=== PATIENT | female | born 1940 | race Caucasian/White ===

== ENCOUNTER 2017-11-09 13:10 | Inpatient (IN) | payer MEDICARE, BC ==
[~2017-11-09] VITALS: Ht 157.5 cm; Wt 74.4 kg
[~2017-11-09 13:10] MED LIST: ALDACTONE25 MG PO; AVALIDE 150-121 EACH PO; CARDIZEM CD120 MG PO; IRBESARTAN-HCT1 EACH PO; PLAVIX 75 MG TA75 M1 PO; PRILOSEC 20 MG20 MG PO; PROTONIX40 M1 PO; VITAMIN D 5050000 I1 PO
[2017-11-09 13:16] VITALS: BP 108/51
[2017-11-09] MEDS ORDERED: CARAFATE1 GM/10 ML PO (13:19)
[2017-11-09 14:32] LABS: HEMATOCRIT 32.7 % (37.0-47.0); HEMOGLOBIN 10.9 gm/dL (12.0-15.0); MCH 30.5 pg (26.0-34.0); MCHC 33.5 g/dL (28.0-37.0); MCV 91.1 fL (80.0-100.0); MPV 6.7 fl. (7.2-11.1); NUCLEATED RBCS 0 /100WBC; PLATELET COUNT* 90 thou/uL (150-400); RBC 3.58 mil/uL (4.20-5.00); RDW-CV 17.4 % (10.5-14.5)
[2017-11-09 14:38] LABS: ANION GAP 7 mmol/L (7-16); BUN 17 mg/dL (7-18); CALCIUM 8.7 mg/dL (8.5-10.1); CHLORIDE 96 mmol/L (98-107); CO2 28 mmol/L (21-32); CREATININE 0.9 mg/dL (0.6-1.3); GLUCOSE 88 mg/dL (70-99); POTASSIUM 3.4 mmol/L (3.5-5.1); SODIUM 131 mmol/L (136-145)
[2017-11-09 14:49] LABS: ALBUMIN 3.1 g/dL (3.4-5.0); ALKALINE PHOSPHATASE 78 U/L (46-116); NT-PRO BRAIN NAT PEPTIDE 63 pg/mL (<300); SGOT 16 U/L (15-37); SGPT 18 U/L (30-65); TOTAL BILIRUBIN 0.3 mg/dL (<0.1-1.0); TOTAL PROTEIN 6.4 g/dL (6.4-8.2); TROPONIN-I LEVEL <0.06 ng/mL (<0.06)
[2017-11-09 14:51] LABS: ABSOLUTE LYMPHOCYTES 0.3 thou/uL (0.8-5.3); ABSOLUTE MONOCYTES 0.3 thou/uL (0.0-1.2); ABSOLUTE NEUTROPHILS 1.3 thou/uL (1.6-8.1); ATYPICAL LYMPHS 4 %
[2017-11-09 14:52] LABS: PLATELET ESTIMATE DECREASED
[2017-11-09 16:27] LABS: URINE BILIRUBIN NEGATIVE (Negative); URINE BLOOD NEGATIVE (Negative); URINE CLARITY CLEAR; URINE COLOR YELLOW; URINE GLUCOSE-RANDOM NEGATIVE (Negative); URINE KETONES NEGATIVE (Negative); URINE LEUKOCYTES-REFLEX NEGATIVE (Negative); URINE NITRITE-REFLEX NEGATIVE (Negative); URINE PROTEIN NEGATIVE (Negative); URINE SPECIFIC GRAVITY <= 1.005 (1.005-1.030); URINE UROBILINOGEN 0.2 E.U./dl (0.2-1.0)
[2017-11-09 16:57] VITALS: BP 140/70
[2017-11-09 17:10] VITALS: BP 123/78
[2017-11-09 17:50] LABS: BE -2.2 mmol/L (-2 to +3); HCO3 21.1 mmol/L (22.0-26.0); PCO2 31.9 mmHg (35.0-45.0); pH 7.439 (7.340-7.450)
--- NOTE | 2017-11-09 19:00 | NUR ---
RECEIVED REPORT FROM SHRAVAN IN ER. PT TRANSFERED TO TELE AT 1710, ASSUMED CARE. VSS. O2 SAT 94% ON 2L PER NC. PT A&O X4. ADMISSION HISTORY, ASSESSMENT, AND EDUCATION COMPLETED CHARTED. MEDS RECONCILLED. IV PATENT AND INFUSING. PT EATING AND DRINKING WITHOUT ISSUE. PT UP STANDBY TO BATHROOM TO VOID - VOIDING WITHOUT ISSUE. PT DENIES PAIN OR DISCOMFORT AT THIS TIME. PT DENIES SOA FEELINGS. ABG'S ORDERED. PT ORIENTED TO ROOM, BED AND CALL LIGHT. PT COMMUNCIATES UNDERSTANDING. AT BEDSIDE. LOW FALL RISK PRECAUTIONS ARE IN PLACE. CALL LIGHT IS WITHIN REACH. HOURLY ROUNDING PERFORMED.
[2017-11-09 20:00] VITALS: BP 110/69
--- NOTE | 2017-11-09 20:00 | NUR ---
RECEIVED REPORT AND ASSUMED CARE OF PT, ASSESSMENT COMPLETED. PT VERY PLEASANT. SOB WITH ACTIVITY OR TALKING. HOB ELEVATED. O2 SAT 95% ON RA. TELEMETRY ON SHOWING SR. WILL CONT TO MONITOR AND ASSIST NEEDED.
[2017-11-09 22:27] LABS: INFLUENZA A ANTIGEN None Detected (None Detect); INFLUENZA B ANTIGEN None Detected (None Detect)
[2017-11-10] VITALS: BP 114/65
[2017-11-10 04:00] VITALS: BP 118/72
--- NOTE | 2017-11-10 05:08 | NUR ---
HAVING INTERMITTENT SOB, HOB ELEVATED. RT TX GIVEN. INDEPENDENT BRP WITH STEADY GAIT. TELEMETRY CONT TO SHOW SR. DENIES CP. ACHIEVING GOALS OF SAFETY AND COMFORT. HOURLY ROUNDING OBSERVED.
[2017-11-10 05:44] LABS: ABSOLUTE LYMPHOCYTES 0.1 thou/uL (0.8-5.3); ABSOLUTE MONOCYTES 0.1 thou/uL (0.0-1.2); ABSOLUTE NEUTROPHILS 0.7 thou/uL (1.6-8.1); MPV 7.1 fl. (7.2-11.1); PLATELET COUNT* 90 thou/uL (150-400)
[2017-11-10 05:51] LABS: BASOPHILS 0.4 %; HEMATOCRIT 33.5 % (37.0-47.0); HEMOGLOBIN 11.1 gm/dL (12.0-15.0); LYMPHOCYTES 14.5 %; MCH 30.4 pg (26.0-34.0); MCHC 33.2 g/dL (28.0-37.0); MCV 91.6 fL (80.0-100.0); MONOCYTES 7.4 %; NUCLEATED RBCS 1 /100WBC; POLYS 77.7 %; RBC 3.66 mil/uL (4.20-5.00); RDW-CV 17.5 % (10.5-14.5)
[2017-11-10 05:57] LABS: CALCIUM 8.7 mg/dL (8.5-10.1); CREATININE 1.3 mg/dL (0.6-1.3); POTASSIUM 3.1 mmol/L (3.5-5.1)
[2017-11-10 06:02] LABS: WBC 0.9 thou/uL (4.0-11.0)
[2017-11-10 08:45] VITALS: BP 141/77
--- NOTE | 2017-11-10 09:00 | NUR ---
ASSUMED PT. CARE AND RECEIVED REPORT AT 0730. PT A/OX4, VSS, MONITOR ON TRACING SR. PT. DENIES CURRENT PAIN/SOB. ON RA @ 97%, WITH VERY COURSE LUNG JACKSON THROUGH OUT. FULL ASSESSMENT COMPLETED, REFER TO CHARTING. DISCUSSED PLAN OF CARE WITH PT/SPOUSE, WILL DISCUSS WITH TO CHANGE TO XOPENEX BREATHING TREATMENT TO REDUCE JITTERS. CALL LIGHT IN REACH, WILL CONTINUE WITH PLAN OF CARE.
[2017-11-10 14:17] VITALS: BP 118/69
[2017-11-10 17:11] VITALS: BP 118/60
--- NOTE | 2017-11-10 19:00 | NUR ---
PT. STABLE THROUGH OUT SHIFT. UP IN ROOM AD DANIELLE, TOLERATED WELL AND STEADY ON FEET. PT. STATES SOME MINOR RELIEF OF SHAKINESS SINCE SWITCH TO XOPENEX BREATHING TREATMENTS. HOURLY ROUNDING COMPLETED THROUGH OUT THE DAY FOR PT. SAFETY.
[2017-11-10 21:00] VITALS: BP 141/72
[2017-11-11] VITALS (7 sets, daily range): BP systolic 121–1347; BP diastolic 61–84
[2017-11-11 06:15] LABS: ALBUMIN 2.8 g/dL (3.4-5.0); CALCIUM 8.5 mg/dL (8.5-10.1); CREATININE 0.9 mg/dL (0.6-1.3); POTASSIUM 3.9 mmol/L (3.5-5.1); TOTAL BILIRUBIN 0.2 mg/dL (<0.1-1.0); TOTAL PROTEIN 6.1 g/dL (6.4-8.2)
[2017-11-11 06:26] LABS: HEMATOCRIT 33.4 % (37.0-47.0); HEMOGLOBIN 11.1 gm/dL (12.0-15.0); MCH 30.4 pg (26.0-34.0); MCHC 33.2 g/dL (28.0-37.0); MCV 91.4 fL (80.0-100.0); MPV 6.8 fl. (7.2-11.1); NUCLEATED RBCS 0 /100WBC; PLATELET COUNT* 101 thou/uL (150-400); RBC 3.66 mil/uL (4.20-5.00); RDW-CV 17.3 % (10.5-14.5)
[2017-11-11 06:33] LABS: WBC 6.7 thou/uL (4.0-11.0)
--- NOTE | 2017-11-11 06:52 | NUR ---
UP AD DANIELLE IN ROOM. DENIED NEED FOR PAIN OR NAUSEA MEDICATION. IV SALINED LOCKED. REMAINS ON HEART MONITOR. DR NOTIFIED OF CRITICAL LABS THIS AM. NO NEW ORDERS. CALL LIGHT WITHIN REACH. WILL CONTINUE TO MONITOR.
[2017-11-11 07:33] LABS: ABSOLUTE LYMPHOCYTES 0.3 thou/uL (0.8-5.3); ABSOLUTE MONOCYTES 0.5 thou/uL (0.0-1.2); ABSOLUTE NEUTROPHILS 5.9 thou/uL (1.6-8.1); ANISOCYTOSIS 1+; PLATELET ESTIMATE ADEQUATE
--- NOTE | 2017-11-11 08:00 | NUR ---
RECEIVED REPORT. ASSUMED CARE OF PT AT 0730. VSS. CARDIAC MONITORING IN PLACE SR. AM ASSESSMENT AND VITALS COMPLETED CHARTED. PT ALERT AND ORIENTED X 4. PT ON RA WITH O2 SAT AT 95% THIS AM. PT DENIES ANY SOA THIS AM. PT HAS BEEN UP AMBULATING IN ROOM. IV SALINE LOCKED. PT DENIES ANY COMPLAINTS OF PAIN OR DISCOMFORT THIS AM. DISCUSSED PLAN OF CARE WITH PT. PT HAS MULTIPLE QUESTIONS REGARDING LABS AND PLAN PT INFORMED AND COMMUNICATES UNDERSTANDING. CALL LIGHT IS WITHIN REACH. WILL CONTINUE TO [facility].
--- NOTE | 2017-11-11 10:09 | CON ---
[address] [address] CONSULTATION Name: TRISTANMELVIN J Room: [address] IN M.R.#: [id number] Admission: 11/09/17 Attend Phys: Helder Dave MD Discharge: Date of : 42 Report #: [id number] THIS REPORT FOR: //name// CC: Helder Stein [facility] DATE OF SERVICE: 11/10/2017 REFERRING PHYSICIAN: Helder Dave MD CHIEF COMPLAINT: Dyspnea. HISTORY OF PRESENT ILLNESS: The patient is a 77-year-old female who was diagnosed with bronchogenic carcinoma, cell type unknown. This occurred back in 02/2017. Prior to that, she had been evaluated for a change in her voice. 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 a paralyzed vocal cord. She was seen by ENT, subsequently referred to [facility]. The patient underwent a left cervical node biopsy and was found to have carcinoma, as mentioned cell type unknown. After that was performed, she underwent a staging workup. This was under the guidance of the oncology division at [facility]. She did undergo chemotherapy treatments at the [facility] and had undergone radiation therapy in [place] under the guidance of Dr. Calderón. The patient states that she was doing well, was starting to regain some strength back in August and September. Then she became ill again. She was told she had radiation pneumonitis, was given a tapering course of prednisone. Yesterday, she was not feeling well, developed cough, had low grade temperature, worsening shortness of breath and just having generalized malaise. She has not had any nausea, vomiting, headache, blurred vision, numbness, tingling. She called her doctor's office and was advised to come to the Emergency Room. PAST MEDICAL HISTORY: Significant for radiation pneumonitis, chronic obstructive pulmonary disease, bronchogenic carcinoma, cell type unknown. In addition to the above medical problems, she has a history of DVT. ALLERGIES: None known. MEDICATIONS: Carafate, , Plavix, Protonix, irbesartan, Rocephin, Zithromax, Solu-Medrol, subQ Lovenox. SOCIAL HISTORY: She is a prior smoker. She quit some time in the summer of 2016, probably consuming about a pack a day. She was vague about her cigarette intake over the years. [place] [address] CONSULTATION Name: MELVIN HUDSON Room: [address]#: [id number] Admission: 11/09/17 Attend Phys: Helder Dave MD Discharge: Date of : 42 Report #: [id number] FAMILY HISTORY: Noncontributory at this time for advanced age. PHYSICAL EXAMINATION: VITAL SIGNS: Blood pressure 141/77, respiratory rate 20 and nonlabored, pulse rate 77, temperature 98 degrees, her admission temperature 97.7 degrees. Her weight 161 pounds. HEAD: She has hair loss from a recent medication treatment for her bronchogenic carcinoma. Head is otherwise atraumatic. EYES: Pupils are round, equal, reactive. ORAL CAVITY: Moist. No lesions. NECK: No adenopathy. CHEST: Scattered wheezes and rhonchi. Breath sounds diminished, symmetrical expansion. CARDIOVASCULAR: Regular rhythm. No murmurs or rubs. ABDOMEN: Soft. EXTREMITIES: Negative for edema. No evidence of clubbing. SKIN: Warm and dry without rash. LYMPHATICS: Negative. NEUROLOGIC: Moves all 4 extremities. Strength diminished, but equal. LABORATORY DATA: Sodium 136, potassium 3.1, chloride 99, CO2 of 22, BUN of 15, creatinine 1.3, glucose 234. Hemoglobin and hematocrit of 11 and 33.5, white count initially was 2000, now it is 900. Influenza A/B screen negative. Arterial blood gas obtained in ER evaluation revealed a pH of 7.44, pCO2 of 32, pO2 of 69, bicarbonate 21 on room air. There was no indication of oxygen therapy at home. Chest x-ray, apical triangular infiltrate or mass in the medial right upper lung with slight retraction. CTA chest did not reveal any evidence of pulmonary emboli, right lung infiltrate or mass effect. ASSESSMENT: 1. Chronic obstructive airways disease with exacerbation most likely. 2. Cough, which is nonproductive. 3. Bronchogenic carcinoma status post treatment. RECOMMENDATION: The patient did have a PET scan last week. It would be good to get that information. Otherwise, no change in her medication. Continue steroids, aerosol treatments, aspiration precautions. Suspect she should have a response as the bronchospasm improves. It should help alleviate some of her respiratory distress and minimize her cough at this time. <ELECTRONICALLY SIGNED> By: Migel De La Fuente MD 11/11/17 1009 [id number] [id number] De La Fuente MD /nt
--- NOTE | 2017-11-11 14:51 | NUR ---
NOTED PT'S HR AFIB WITH RATES INCREASING TO 120-130'S DR. CLIFTON NOTIFIED, AWAITING CALL BACK AT THIS TIME.
--- NOTE | 2017-11-11 15:46 | NUR ---
VSS. CARDIAC MONTIORING IN PLACE WITH CHANGES THIS SHIFT FROM SR TO AFIB WITH HR IN THE 120'S-130'S. PT REMAINS ON RA. PT DENIES ANY COMPLAINTS OF PAIN OR DISCOMFORT THIS SHIFT. PT DOES REPORT SOME LOOSE STOOLS WITH BOWEL PT STARTED ON PROBIOTIC. PT IS UP INDEPENDENTLY IN ROOM. PT PROGRESSING TOWARDS GOALS. PT INFORMED OF PLAN OF CARE. CALL LIGHT IS WIHTIN REACH. WILL CONTINUE TO MONITOR FOR DURAITON OF SHIFT.
--- NOTE | 2017-11-12 00:15 | NUR ---
BEGAN CARE OF PT AT 191, PT A/OX4, SR ON THE MONITOR, RA, FREE FROM PAIN/SOA AT THE TIME OF ASSESSMENT, UP AD DANIELLE, MEDS/ASSESSMENT PER CHARTING, INFORMED PT I NEED TO ASSESS HER BUTTOM WHEN SHE GETS UP TO USE THE RESTROOM, HOURLY ROUNDING/FALL PRECAUTIONS IN PLACE, DAY RN STATED PT IS NO LONGER IN NEUROPENIC PRECAUTIONS DUE TO HER WBC'S INCREASED INTO THE 6'S, INFORMED PT I WILL CONT TO WEAR A MASK WHEN TENDING TO HER CARE, DAY RN REPORTED PT HAD GONE INTO A-FIB RVR ON DAY SHIFT BUT CONVERTED BACK ON HER OWN AND THEY INCREASED HER CARDIZEM TO PO BID TO HELP, VSS, WILL CONT TO MONITOR.
[2017-11-12 04:00] VITALS: BP 117/71
[2017-11-12 05:17] LABS: ABSOLUTE LYMPHOCYTES 0.4 thou/uL (0.8-5.3); ABSOLUTE MONOCYTES 0.4 thou/uL (0.0-1.2); BASOPHILS 0.1 %; HEMATOCRIT 32.8 % (37.0-47.0); HEMOGLOBIN 10.9 gm/dL (12.0-15.0); LYMPHOCYTES 5.6 %; MCH 30.7 pg (26.0-34.0); MCHC 33.2 g/dL (28.0-37.0); MCV 92.5 fL (80.0-100.0); MONOCYTES 4.8 %; NUCLEATED RBCS 0 /100WBC; PLATELET COUNT* 111 thou/uL (150-400); POLYS 89.5 %; RBC 3.54 mil/uL (4.20-5.00); RDW-CV 17.4 % (10.5-14.5); WBC 7.8 thou/uL (4.0-11.0)
[2017-11-12 05:31] LABS: CALCIUM 8.7 mg/dL (8.5-10.1); CREATININE 1.3 mg/dL (0.6-1.3); POTASSIUM 3.5 mmol/L (3.5-5.1); TOTAL BILIRUBIN 0.2 mg/dL (<0.1-1.0); TOTAL PROTEIN 6.4 g/dL (6.4-8.2)
[2017-11-12 05:53] LABS: PREALBUMIN 20.5 mg/dL (18.0-35.7)
[2017-11-12 08:53] VITALS: BP 146/75
--- NOTE | 2017-11-12 11:33 | NUR ---
ASSUMED PT CARE 0730. VSS. AFEBRILE. WBC 7.8 PT LEFT IN NEUTROPENIC PRECAUTIONS BECAUSE OF PT HX. PT UP AD DANIELLE. NO C/O PAIN. WILL CONTINUE PLAN OF CARE.
[2017-11-12 12:09] VITALS: BP 132/72
--- NOTE | 2017-11-12 16:00 | NUR ---
VISITED WITH PT. SHE SAID SHE LIVES WITH HER . SHE DOES NOT USE DME AND HAS NOT HAD HOME HEALTH. SHE IS NORMALLY INDEPENDENT. SHE SAID SHE WAS DONE WITH HER RADIATION AND [place] IN AUG. THEY WANT TO START HER ON IMMUNOTHERAPY SHE TRIES TO DO WHAT SHE CAN AROUND THE HOUSE. SHE IS JUST VERY WEAK,SHE STATED. SHE SAID HER CHILDREN AND NUMEROUS FRIENDS HAVE OFFERED TO HELP HER WITH HOUSE CLEANING,ETC BUT SHE SAID IM GONNA HAVE TO SWALLOW MY PRIDE AND LET THEM HELP. IT IS A VERY HARD THING FOR ME TO DO. CM WILL FOLLOW FOR ANY DISCHARGE NEEDS.
[2017-11-12 17:10] VITALS: BP 146/96
--- NOTE | 2017-11-12 17:46 | NUR ---
PT C/O OF SOA WHEN AMBULATING. PT MAINTAINING O2 AT 96%. WILL CONTINUE TO MONITOR.
[2017-11-12 20:30] VITALS: BP 150/72
[2017-11-13 00:54] VITALS: BP 128/71
[2017-11-13 04:34] VITALS: BP 135/78
--- NOTE | 2017-11-13 04:52 | NUR ---
PT REMAINED A/OX4, SR ON THE MONITOR, OANH JACOBS REPORTED WHEN SHE'S COUGHING, MUCINEX STARTED YESTERDAY, UP AD DANIELLE, MEDS/ASSESSMENT PER CHARTING, VSS, HOURLY ROUNDING/FALL PRECAUTIONS IN PLACE, PT USES CALL LIGHT FOR REQUEST/NEEDS, FREE FROM PAIN DURING THIS SHIFT, WILL CONT TO MONITOR.
[2017-11-13 05:29] LABS: ABSOLUTE LYMPHOCYTES 0.3 thou/uL (0.8-5.3); ABSOLUTE MONOCYTES 0.4 thou/uL (0.0-1.2); ABSOLUTE NEUTROPHILS 7.4 thou/uL (1.6-8.1); BASOPHILS 0.1 %; HEMATOCRIT 32.4 % (37.0-47.0); HEMOGLOBIN 10.9 gm/dL (12.0-15.0); LYMPHOCYTES 3.5 %; MCH 30.6 pg (26.0-34.0); MCHC 33.7 g/dL (28.0-37.0); MCV 90.8 fL (80.0-100.0); MONOCYTES 4.5 %; MPV 6.9 fl. (7.2-11.1); NUCLEATED RBCS 0 /100WBC; PLATELET COUNT* 121 thou/uL (150-400); POLYS 91.9 %; RBC 3.56 mil/uL (4.20-5.00); RDW-CV 17.4 % (10.5-14.5); WBC 8.1 thou/uL (4.0-11.0)
[2017-11-13 05:44] LABS: ALBUMIN 3.1 g/dL (3.4-5.0); CALCIUM 8.7 mg/dL (8.5-10.1); CREATININE 1.2 mg/dL (0.6-1.3); POTASSIUM 3.3 mmol/L (3.5-5.1); TOTAL BILIRUBIN 0.2 mg/dL (<0.1-1.0); TOTAL PROTEIN 6.3 g/dL (6.4-8.2)
[2017-11-13 07:50] VITALS: BP 154/84
--- NOTE | 2017-11-13 10:00 | NUR ---
ASSUMED PT CARE 0730. PT A/O X'S 4. NO C/O PAIN. POTASSIUM REPLACED. PT UP AD DANIELLE. PT REPORTS WHITE MUCOUS. PT REPORTS SHE FEELS SHE NEEDS TO GET OUT MORE MUCOUS. PT REPORTS SOME SOA WITH ACTIVITY. PT 94% ON ROOM AIR. WILL CONTINUE PLAN OF CARE.
[2017-11-13 16:16] VITALS: BP 143/66
--- NOTE | 2017-11-13 16:27 | NUR ---
PT ON ROOM AIR. POTASSIUM REDRAW 3.3. POTASSIUM ELECTROLYTE PROTOCOL RE-STARTED.
[2017-11-13 20:30] VITALS: BP 141/74
--- NOTE | 2017-11-13 22:16 | NUR ---
PT A/OX4, RA, MED/SURG STATUS, VSS WITH STATES 96-98% ON RA, UP AD DANIELLE, MEDS/ASSESSMENT PER CHARTING, HOULRY ROUNDING/FALL PRECAUTIONS IN PLACE, FREE FROM PAIN, REPORTED SOA IS IMPROVED A BIT, POTASSIUM RE-CHECKED WITH RESULTS OF 4.2, WILL CONT TO MONITOR.
[2017-11-14] VITALS: BP 136/70
--- NOTE | 2017-11-14 07:30 | NUR ---
RECEIVED REPORT. ASSUMED CARE OF PT AT 0730. VSS. MED-SURG STATUS. NO CARDIAC MONTIORING IN PLACE. PT ON RA. O2 SAT AT 95% PT ALERT AND ORIENTED. PT DENIES ANY SOA. PT DENIES ANY COMPLAINTS OF PAIN OR DISCOMFORT. PT IS UP INDEPENDENTLY IN ROOM. PT INFORMED OF PLAN OF CARE. CALL LIGHT IS WITHIN REACH. WILL CONTINUE TO MOTNIROR FOR DURATION OF SHIFT
[2017-11-14 08:29] VITALS: BP 158/74
[2017-11-14 16:00] VITALS: BP 145/71
--- NOTE | 2017-11-14 17:19 | NUR ---
VSS. NO CARDIAC MONITORING. PT REMAINS ON RA. IV SALINE LOCKED. PT IS UP INDEPENDELTY IN ROOM. PT HAS HAD NO COMPLAINTS OF PAIN OR DISCOMFORT THIS SHIFT. PT PROGRESSING TOWARDS GAOLS. PULMONARY SIGNED OFF SAID IT WAS OK FOR PT TO D/C. PT INFORMED OF PLAN OF CARE. PT COMMUNCIATES UNDERSTANDING. CALL LIGHT IS WITHIN REACH. WILL CONTINUE TO MOTNIOR FOR DURAIOTN OF SHIFT.
[2017-11-14 20:08] VITALS: BP 144/69
[2017-11-15 04:00] VITALS: BP 147/79
--- NOTE | 2017-11-15 05:25 | NUR ---
PT CARE ASSUMED AFTER REPORT. ASSESSMENT COMPLETE. M/S STATUS. DENIES PAIN. UP AD DANIELLE WITH STEADY GAIT. CALL LIGHT IN REACH. BED IN LOWEST POSITION. PROGRESSING TOWARDS SOME GOALS.
[2017-11-15 08:17] VITALS: BP 152/79
--- NOTE | 2017-11-15 08:18 | NUR ---
RECEVIED REPORT. ASSUMED CARE OF PT AT 0730. VSS. PT MED-SURG STATUS. PT REPORTS FEELING WELL THIS AM. PT ON RA. IV SALINE LOCKED. PT DENIES ANY COMPLAINTS OF PAIN OR DISCOMFORT THIS AM. PT READY TO DISCHARGE TODAY. PT INFORMED OF PLAN OF CARE. CALL LIGHT IS WITHIN REACH. WILL CONTINUE TO MONITOR FOR DURATION OF SHIFT.
[2017-11-15 08:33] VITALS: BP 152/79
[2017-11-15] MEDS ORDERED: ALBUTEROL SULFAT2 MG PO (10:04)
[2017-11-15] MEDS ORDERED: SINGULAIR 10 MG10 M1 PO (10:05)
[2017-11-15] MEDS ORDERED: PREDNISONE 10 M10 MG PO (10:06)
[2017-11-15] MEDS ORDERED: BROVANA15 MCG/2 M INH (10:06)
[2017-11-15] MEDS ORDERED: PULMICORT0.5 MG/22 INH (10:07)
[2017-11-15] MEDS ORDERED: CEFPODOXIME PR100 MG PO (10:09)
--- NOTE | 2017-11-15 10:52 | NUR ---
DISCHARGE ORDERS RECEIVED AND PREPARED. IV DISCONTINUED. PT GIVEN AM MEDS HOWEVER THIS RN UNABLE TO EDIT MEDS ON EMAR BECAUSE COMPUTER SHUT DOWN IN THE PROCESS OF DOCUMENTING ON MEDICATIONS. PT EDUCATED ON DISCHARGE INSTRUICTIONS. ALL QUESTIONS AND CONCNERS ANSWERED AT THIS TIME. PT GIVEN COPY OF DISCHARGE PAPERWORK, NEW SCRIPTS, AND NEW MED INFO. PT'S PERSONAL BELONGINGS GATHERED SENT HOME WITH PT. PT ESCORTED OFF UNIT VIA W/C. PT LEFT IN PRIVATE VEHICLE.
== END 2017-11-15 10:57 | disposition home or self-care (01) | DRG 177 ==
LOC: M.ERS 13:10 → M.TBA-ER 16:14 → M.2W 16:14
PROVIDERS: Family Medicine; Physician Assistant; ADMIT Internal Medicine
DX: J15.6 Pneumonia due to other Gram-negative bacteria (principal); J96.21 Acute and chronic respiratory failure with hypoxia; R65.10 Systemic inflammatory response syndrome (SIRS) of non-infectious origin without acute organ dysfunction; J44.1 Chronic obstructive pulmonary disease with (acute) exacerbation; C34.90 Malignant neoplasm of unspecified part of unspecified bronchus or lung; E87.1 Hypo-osmolality and hyponatremia; E44.0 Moderate protein-calorie malnutrition; D61.818 Other pancytopenia; J44.0 Chronic obstructive pulmonary disease with (acute) lower respiratory infection; I10 Essential (primary) hypertension; M19.90 Unspecified osteoarthritis, unspecified site; K21.9 Gastro-esophageal reflux disease without esophagitis; Z90.710 Acquired absence of both cervix and uterus; I73.9 Peripheral vascular disease, unspecified; D64.9 Anemia, unspecified; Z86.718 Personal history of other venous thrombosis and embolism; Z87.891 Personal history of nicotine dependence; Z92.21 Personal history of antineoplastic chemotherapy; Z92.3 Personal history of irradiation; Z68.30 Body mass index [BMI] 30.0-30.9, adult

== ENCOUNTER → 2018-03-25 | Outpatient (CLI) | payer MEDICARE, BC ==
[~2018-03-25] MED LIST changes: +ALBUTEROL SULFAT2 MG PO; +BROVANA15 MCG/2 M INH; +CARAFATE1 GM/10 ML PO; +CEFPODOXIME PR100 MG PO; +DEXAMETHASONE 44 M1 PO; +PREDNISONE 10 M10 MG PO; +PREDNISONE 5 MG5 MG PO; +PULMICORT0.5 MG/22 INH; +SINGULAIR 10 MG10 M1 PO; +VENTOLIN HFA 1818 GM INH
== END ==
LOC: M.ULTRA 13:55
DX: I73.9 Peripheral vascular disease, unspecified (principal); R60.0 Localized edema; I10 Essential (primary) hypertension

== ENCOUNTER 2018-07-12 22:32 | Emergency (ER) | payer MEDICARE, BC ==
[~2018-07-12] VITALS: Ht 157.5 cm; Wt 78.0 kg
[~2018-07-12 22:32] MED LIST changes: -DEXAMETHASONE 44 M1 PO; -PREDNISONE 5 MG5 MG PO; -VENTOLIN HFA 1818 GM INH
[2018-07-12 23:13] LABS: ABSOLUTE EOSINOPHILS 0.1 thou/uL (0.0-0.7); ABSOLUTE LYMPHOCYTES 0.9 thou/uL (0.8-5.3); ABSOLUTE MONOCYTES 0.5 thou/uL (0.0-1.2); ABSOLUTE NEUTROPHILS 5.3 thou/uL (1.6-8.1); BASOPHILS 0.6 %; EOSINOPHILS 1.4 %; HEMATOCRIT 39.8 % (37.0-47.0); HEMOGLOBIN 13.2 gm/dL (12.0-15.0); LYMPHOCYTES 13.1 %; MCH 28.7 pg (26.0-34.0); MCHC 33.1 g/dL (28.0-37.0); MCV 86.6 fL (80.0-100.0); MONOCYTES 6.7 %; MPV 6.5 fl. (7.2-11.1); NUCLEATED RBCS 0 /100WBC; PLATELET COUNT* 161 thou/uL (150-400); POLYS 78.2 %; RDW-CV 17.4 % (10.5-14.5); WBC 6.8 thou/uL (4.0-11.0)
[2018-07-12 23:21] LABS: CALCIUM 9.1 mg/dL (8.5-10.1); CREATININE 1.1 mg/dL (0.6-1.3); POTASSIUM 3.8 mmol/L (3.5-5.1)
[2018-07-12 23:24] LABS: APTT 25.4 Seconds (25.0-31.3); PROTIME 9.8 Seconds (9.20-11.50)
[2018-07-12 23:26] LABS: ALBUMIN 2.8 g/dL (3.4-5.0); TOTAL BILIRUBIN 0.4 mg/dL (<0.1-1.0); TOTAL PROTEIN 6.6 g/dL (6.4-8.2)
[2018-07-12 23:48] LABS: NT-PRO BRAIN NAT PEPTIDE 198 pg/mL (<300); TROPONIN-I LEVEL <0.06 ng/mL (<0.06)
[2018-07-13 00:24] LABS: URINE BILIRUBIN NEGATIVE (Negative); URINE BLOOD TRACE (Negative); URINE CLARITY CLEAR; URINE COLOR YELLOW; URINE GLUCOSE-RANDOM NEGATIVE (Negative); URINE KETONES NEGATIVE (Negative); URINE LEUKOCYTES-REFLEX NEGATIVE (Negative); URINE NITRITE-REFLEX NEGATIVE (Negative); URINE PROTEIN NEGATIVE (Negative); URINE SPECIFIC GRAVITY 1.025 (1.005-1.030); URINE UROBILINOGEN 0.2 E.U./dl (0.2-1.0)
[2018-07-13 01:42] VITALS: BP 122/75
--- NOTE | 2018-07-13 12:10 | EKG ---
[place] [address] ELECTROCARDIOGRAM REPORT Name: MELVIN HUDSON Room: [facility]#: [id number] Admission: 07/12/18 Attend Phys: Discharge: 07/13/18 Date of : 42 Report #: [id number] THIS REPORT FOR: //name// [facility] ED Test Date: 2018-07-12 Test Time: 23:41:19 Pat Name: MELVIN HUDSON Department: Room: Gender: F Coding Clerk: Toshia GERBER : 1940 Requested By: Oliverio Baez Order Number: [id number] MD: Emil Ryan Measurements Intervals [place] Rate: 92 P: 38 ID: 141 QRS: 5 QRSD: 92 T: 39 QT: 333 QTc: 412 Interpretive Statements Sinus rhythm Probable left atrial enlargement Low voltage, precordial leads Baseline wander in lead(s) V6 No previous ECG available for comparison Electronically Signed On 07-13-2018 12:10:12 CDT by Emil Ryan [email or web address] <ELECTRONICALLY SIGNED> By: Emil Ryan MD, [facility] 07/13/18 1210 [id number] Emil Ryan MD, [facility] /EPI
== END 2018-07-13 01:45 | disposition short-term general hospital (02) ==
LOC: M.ERS 22:32
PROVIDERS: Nurse Practitioner Family
DX: J18.9 Pneumonia, unspecified organism (principal); I10 Essential (primary) hypertension; K21.9 Gastro-esophageal reflux disease without esophagitis; Z85.828 Personal history of other malignant neoplasm of skin; Z90.710 Acquired absence of both cervix and uterus

== ENCOUNTER → 2018-07-29 | Outpatient (CLI) | payer MEDICARE, BC ==
[~2018-07-29] MED LIST changes: +DEXAMETHASONE 44 M1 PO; +PREDNISONE 5 MG5 MG PO; +VENTOLIN HFA 1818 GM INH
[2018-07-29 10:31] LABS: HEMATOCRIT 39.6 % (37.0-47.0); MCH 28.1 pg (26.0-34.0); MCHC 32.9 g/dL (28.0-37.0); MCV 85.4 fL (80.0-100.0); NUCLEATED RBCS 0 /100WBC; PLATELET COUNT* 218 thou/uL (150-400); RBC 4.64 mil/uL (4.20-5.00); RDW-CV 17.3 % (10.5-14.5); WBC 7.8 thou/uL (4.0-11.0)
[2018-07-29 10:54] LABS: ABSOLUTE LYMPHOCYTES 1.1 thou/uL (0.8-5.3); ABSOLUTE MONOCYTES 0.2 thou/uL (0.0-1.2); ABSOLUTE NEUTROPHILS 6.6 thou/uL (1.6-8.1); PLATELET ESTIMATE ADEQUATE
[2018-07-29 10:55] LABS: ANISOCYTOSIS 1+
[2018-07-29 11:04] LABS: CALCIUM 9.4 mg/dL (8.5-10.1); CREATININE 1.1 mg/dL (0.6-1.3)
== END ==
LOC: M.LAB 10:15 → M.MRI 11:30
PROVIDERS: Radiology Radiation Oncology
DX: J98.4 Other disorders of lung (principal); J44.9 Chronic obstructive pulmonary disease, unspecified; J44.0 Chronic obstructive pulmonary disease with (acute) lower respiratory infection; I10 Essential (primary) hypertension; J18.9 Pneumonia, unspecified organism; Z68.31 Body mass index [BMI] 31.0-31.9, adult

== ENCOUNTER 2018-08-08 11:42 | Inpatient (IN) | payer MEDICARE, BC ==
[~2018-08-08] VITALS: Ht 160 cm; Wt 78.9 kg
[~2018-08-08 11:42] MED LIST changes: -DEXAMETHASONE 44 M1 PO; -PREDNISONE 5 MG5 MG PO; -VENTOLIN HFA 1818 GM INH
[2018-08-08 11:47] VITALS: BP 184/102
[2018-08-08 12:08] LABS: ABSOLUTE BASOPHILS 0.1 thou/uL (0.0-0.2); ABSOLUTE LYMPHOCYTES 1.1 thou/uL (0.8-5.3); ABSOLUTE MONOCYTES 0.6 thou/uL (0.0-1.2); ABSOLUTE NEUTROPHILS 4.7 thou/uL (1.6-8.1); EOSINOPHILS 0.6 %; HEMATOCRIT 40.9 % (37.0-47.0); HEMOGLOBIN 13.3 gm/dL (12.0-15.0); LYMPHOCYTES 16.9 %; MCH 28.1 pg (26.0-34.0); MCHC 32.5 g/dL (28.0-37.0); MCV 86.5 fL (80.0-100.0); MONOCYTES 9.2 %; MPV 6.5 fl. (7.2-11.1); NUCLEATED RBCS 0 /100WBC; PLATELET COUNT* 227 thou/uL (150-400); POLYS 72.3 %; RBC 4.73 mil/uL (4.20-5.00); RDW-CV 17.6 % (10.5-14.5); WBC 6.5 thou/uL (4.0-11.0)
[2018-08-08 12:15] LABS: ANION GAP 11 mmol/L (7-16); BUN 14 mg/dL (7-18); CALCIUM 9.6 mg/dL (8.5-10.1); CHLORIDE 100 mmol/L (98-107); CO2 26 mmol/L (21-32); CREATININE 0.9 mg/dL (0.6-1.3); GLUCOSE 131 mg/dL (70-99); SODIUM 137 mmol/L (136-145)
[2018-08-08 12:22] LABS: ALBUMIN 3.2 g/dL (3.4-5.0); ALKALINE PHOSPHATASE 94 U/L (46-116); SGOT 15 U/L (15-37); SGPT 25 U/L (30-65); TOTAL BILIRUBIN 0.5 mg/dL (<0.1-1.0); TOTAL PROTEIN 6.6 g/dL (6.4-8.2); TROPONIN-I LEVEL <0.06 ng/mL (<0.06)
[2018-08-08 12:25] LABS: PROTIME 10.2 Seconds (9.20-11.50)
[2018-08-08] MEDS ORDERED: PREDNISONE 5 MG5 MG PO (12:32)
[2018-08-08 15:31] VITALS: BP 156/97
[2018-08-08 16:52] VITALS: BP 151/86
--- NOTE | 2018-08-08 16:54 | 2DMMODE ---
[place] [address] 2 D/M-MODE ECHOCARDIOGRAM Name: TRISTANMELVIN JOSE Room: [address] IN [facility]#: [id number] Admission: 08/08/18 Attend Phys: Fredrick Rodriguez, Discharge: Date of : 42 Date of Service: 08/08/18 1654 Report #: [id number] THIS REPORT FOR: //name// APPROVED REPORT Study performed: 08/08/2018 14:49:34 EXAM: Comprehensive 2D, Doppler, and color-flow Echocardiogram Patient Location: In-Patient Room #: [facility] Status: routine BSA: 1.77 HR: 68 bpm BP: 182/83 mmHg Rhythm: NSR Other Information Study Quality: Good Indications CVA/TIA Echo Enhancing Agent Indication: Rule out Shunt Agent(s) / Amount(s) Used: Agitated Saline 10 cc 2D Dimensions IVSd: 11.98 (7-11mm) LVOT Diam: 19.33 (18-24mm) LVDd: 38.57 mm PWd: 9.96 (7-11mm) Ascending Ao: 36.99 (22-36mm) LVDs: 24.29 (25-40mm) Aortic Root: 33.07 mm Volumes Left Atrial Volume (Systole) LA ESV Index: 21.60 mL/m2 Aortic Valve AoV Peak Paco.: 1.64 m/s AO Peak Gr.: 10.81 mmHg LVOT Max P.56 mmHg AO Mean Gr.: 6.13 mmHg LVOT Mean P.46 mmHg LVOT Max V: 1.18 m/s AO V2 VTI: 32.78 cm LVOT Mean V: 0.71 m/s ESCOBAR (VTI): 2.19 cm2 LVOT V1 VTI: 24.48 [place] [address] 2 D/M-MODE ECHOCARDIOGRAM Name: MELVIN HUDSON Room: [address] IN .R.#: [id number] Admission: 08/08/18 Attend Phys: Fredrick Rodriguez, Discharge: Date of : 42 Date of Service: 08/08/18 1654 Report #: [id number] Mitral Valve E/A Ratio: 0.66 MV Decel. Time: 221.70 ms MV E Max Paco.: 0.77 m/s MV PHT: 64.29 ms MVA (PHT): 3.42 cm2 TDI E/Lateral E': 8.56 E/Medial E': 7.00 Medial E' Paco.: 0.11 m/s Lateral E' Paco.: 0.09 m/s Pulmonary Valve PV Peak Paco.: 1.16 m/s PV Peak Gr.: 5.34 mmHg Tricuspid Valve RAP Estimate: 5.00 mmHg TR Peak Gr.: 19.04 mmHg RVSP: 24.00 mmHg PA Pressure: 24.00 mmHg Left Ventricle The left ventricle is normal size. There is normal LV segmental wall motion. There is normal left ventricular wall thickness. Left ventricular systolic function is normal. LVEF is 60-65%. Transmitral Doppler flow pattern suggests impaired LV relaxation. Right Ventricle The right ventricle is normal size. The right ventricular systolic function is normal. Atria The left atrium size is normal. Interatrial septum is intact without evidence of ASD or PFO. The right atrium size is normal. Aortic Valve The aortic valve is normal in structure. No aortic regurgitation is present. There is no aortic valvular stenosis. Mitral Valve The mitral valve is normal in structure. There is no mitral valve regurgitation noted. No evidence of mitral valve stenosis. Tricuspid Valve The tricuspid valve is normal in structure. Trace tricuspid regurgitation. [place] [address] 2 D/M-MODE ECHOCARDIOGRAM Name: LEVON HUDSONANA PANTOJAAN Room: [address] IN .R.#: [id number] Admission: 08/08/18 Attend Phys: Fredrick Rodriguez, Discharge: Date of : 42 Date of Service: 08/08/18 1654 Report #: [id number] Pulmonic Valve The pulmonary valve is normal in structure. Trace pulmonic regurgitation. Great Vessels The aortic root is normal in size. IVC is normal in size and collapses >50% with inspiration. Pericardium There is no pericardial effusion. <Conclusion> The left ventricle is normal size. There is normal left ventricular wall thickness. Left ventricular systolic function is normal. LVEF is 60-65%. Transmitral Doppler flow pattern suggests impaired LV relaxation. Interatrial septum is intact without evidence of ASD or PFO. Trace tricuspid regurgitation. No pulmonary hypertension. IVC is normal in size and collapses >50% with inspiration. <ELECTRONICALLY SIGNED> By: Hugo Christine MD, FACC 08/08/181653 53 [id number] Hugo Christine MD, FACC /INF
--- NOTE | 2018-08-08 17:34 | EKG ---
[place] [address] ELECTROCARDIOGRAM REPORT Name: MELVIN HUDSON Room: [address] ADM IN M.R.#: [id number] Admission: 08/08/18 Attend Phys: Fredrick Rodriguez MD Discharge: Date of : 42 Report #: [id number] THIS REPORT FOR: //name// [facility] ED Test Date: 2018-08-08 Test Time: 11:58:52 Pat Name: MELVIN HUDSON Department: Room: [facility] Gender: F Clinical Writer: : 1940 Requested By: Vadim Pantoja Order Number: [id number] MD: Hugo Christine Measurements Intervals [place] Rate: 107 P: 62 AK: 142 QRS: -15 QRSD: 91 T: 19 QT: 374 QTc: 499 Interpretive Statements Sinus tachycardia Ventricular premature complexes Inferior infarct, old, possible Baseline wander in lead(s) V4 Compared to ECG 07/12/2018 23:41:19 Ventricular premature complex(es) now present Myocardial infarct finding now present Sinus rhythm no longer present Electronically Signed On 08-08-2018 17:34:03 [employer] COORDINATOR by Hugo Christine [email or web address] <ELECTRONICALLY SIGNED> By: Hugo Christine MD, FACC 08/08/18 1734 1158 [id number] Hugo Christine MD, FACC /EPI
[2018-08-08 20:00] VITALS: BP 147/91
[2018-08-09] VITALS: BP 156/88
[2018-08-09 04:00] VITALS: BP 149/92
[2018-08-09 05:19] LABS: HEMATOCRIT 38.1 % (37.0-47.0); HEMOGLOBIN 12.4 gm/dL (12.0-15.0); MCH 28.1 pg (26.0-34.0); MCHC 32.5 g/dL (28.0-37.0); MCV 86.5 fL (80.0-100.0); MPV 6.8 fl. (7.2-11.1); RBC 4.41 mil/uL (4.20-5.00); RDW-CV 17.7 % (10.5-14.5); WBC 4.6 thou/uL (4.0-11.0)
[2018-08-09 05:31] LABS: CALCIUM 8.9 mg/dL (8.5-10.1); CREATININE 0.9 mg/dL (0.6-1.3); MAGNESIUM 1.8 mg/dL (1.8-2.4)
[2018-08-09 05:41] LABS: ALBUMIN 2.7 g/dL (3.4-5.0); CREATININE 0.9 mg/dL (0.6-1.3); POTASSIUM 3.9 mmol/L (3.5-5.1); TOTAL BILIRUBIN 0.5 mg/dL (<0.1-1.0); TOTAL PROTEIN 5.6 g/dL (6.4-8.2)
[2018-08-09 08:00] VITALS: BP 132/87
[2018-08-09 10:05] LABS: CHOLESTEROL 203 mg/dL (<200); HDL CHOLESTEROL 60 mg/dL (>40); LDL CHOLESTEROL 113 mg/dL (<100); TC:HDL 3.4 Ratio (Not establshd); TRIGLYCERIDE 150 mg/dL (<150); VLDL 30 mg/dL (<40)
[2018-08-09 10:06] LABS: SERUM ASSESSMENT Clear
[2018-08-09 12:34] VITALS: BP 150/82
[2018-08-09 15:46] VITALS: BP 119/79
[2018-08-09 20:00] VITALS: BP 142/79
[2018-08-09 21:08] LABS: GLYCOHEMOGLOBIN (HGB A1C) 6.3 % (4.8-5.6)
[2018-08-10] VITALS: BP 127/78
[2018-08-10 04:00] VITALS: BP 138/95
[2018-08-10 05:04] LABS: CHOLESTEROL 215 mg/dL (<200); HDL CHOLESTEROL 70 mg/dL (>40); LDL CHOLESTEROL 134 mg/dL (<100); TC:HDL 3.1 Ratio (Not establshd); TRIGLYCERIDE 59 mg/dL (<150); VLDL 12 mg/dL (<40)
[2018-08-10 05:16] LABS: SERUM ASSESSMENT CLEAR
[2018-08-10 08:00] VITALS: BP 154/90
[2018-08-10] MEDS ORDERED: DEXAMETHASONE 44 M1 PO (08:13)
[2018-08-10 09:39] VITALS: BP 154/90
[2018-08-10] MEDS ORDERED: VENTOLIN HFA 1818 GM INH (10:20)
--- NOTE | 2018-08-17 15:44 | CON ---
[address] [address] CONSULTATION Name: TRISTANMELVINANA GARCIA Room: [address] IN M.R.#: [id number] Admission: 08/08/18 Attend Phys: Fredrick Rodriguez MD Discharge: 08/10/18 Date of : 42 Report #: [id number] THIS REPORT FOR: //name// CC: Emil Rodriguez DATE OF SERVICE: 08/08/2018 HISTORY OF PRESENT ILLNESS: This is a 77-year-old female patient who was evaluated by me for the possibility of stroke. This patient has noticed that from last several days, she is having more difficulty with her speech. She was not having much swallowing difficulty. She is right handed. 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 She has been tried with chemotherapy, radiation therapy and when that failed, they tried immunotherapy on her. She received one radiation and she had had an MRI recently on 07/29/2018, that was done with and without contrast and for comparison I got another MRI done. Since we were looking for the stroke, that was done without contrast only, that indicated that the tumor size had increased and her edema had increased. We also did an MRA at the same time and MRA does not show any definite abnormality. She is going to be seen by radiation oncologist. Her oncologist or neuro-oncologist is at [facility]. She has been seen here by Dr. Friedman in the past and her primary oncologist appeared to be at who is Dr. Ortiz. REVIEW OF SYSTEMS: Positive for prior history of lung cancer. She has been admitted here with leukopenia and dyspnea and possible pneumonia and she has seen an oncologist here. Presently, she appeared to be stable from that perspective as her white count when she came in was 6.5, but she is also on steroids. I carried out the 14-point review of systems as much as I can, from the patient as well as the family. She is a prior smoker. 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 She has a history of peripheral vascular disease, hypertension, GERD, skin cancer, hysterectomy, spinal stenosis. That was a relevant 14-point review of system. PAST MEDICAL HISTORY: Positive for lung carcinoma with metastasis. FAMILY HISTORY: Negative for early age stroke. SOCIAL HISTORY: She has a prior history of smoking. PHYSICAL EXAMINATION: Indicate that the patient is alert, responsive. As expected, is somewhat despondent with her situation. Her speech looks intact. Cranial nerve examination 2-12 does indicate some slight facial weakness on the left side. She may be trace weak on the left side as compared to the right side. Clinical neurological deficit is much milder compared to the MRI findings. Cardiac examinations appear unremarkable. [place] [address] CONSULTATION Name: LEVON HUDSONANA GARCIA Room: [address] IN M.R.#: [id number] Admission: 08/08/18 Attend Phys: Fredrick Rodriguez MD Discharge: 08/10/18 Date of : 42 Report #: [id number] appear to be unremarkable. She is moderately built individual. Her vital signs indicate blood pressure is 132/87, respiration is 19, pulse 75, temperature is 98.5. LABORATORY DATA: Indicate a low protein at 2.7. White count is okay at 4.6. Her MRI is reviewed and is summarized above. IMPRESSION AND PLAN: This patient does not have any evidence for CVA. Her symptoms appear to be enlarging edema as well as enlarging metastasis to the brain. It looks like from the history the options are pretty limited in this patient. The patient mainly need to be managed by Oncology as well as Radiation Oncology. She has been seen by Dr. Friedman here and you may consider consulting her again. Radiation Oncology has already been consulted. They need to discuss her options in that regard. Neurologically, there is no evidence for stroke and I do not think there is anything I have to add. I have discussed this patient with the nurses last night, reviewed her MRI and I have talked to the Emergency Room physician last night. More than 50 minutes of time has been spent taking care of this patient and majority of that time was spent counseling the patient as well as coordinating her care as summarized above. <ELECTRONICALLY SIGNED> By: Dharmesh Jimenez MD 08/17/18 1544 [id number] 1926Dharmesh Jimenez MD /nt
--- NOTE | 2018-08-19 03:01 | CON ---
[address] [address] CONSULTATION Name: MELVIN HUDSON Room: [address] IN M.R.#: [id number] Admission: 08/08/18 Attend Phys: Fredrick Rodriguez MD Discharge: 08/10/18 Date of : 42 Report #: [id number] THIS REPORT FOR: //name// CC: Dr. Emil Carl DATE OF CONSULTATION: 08/09/2018 [facility] 0 REFERRING PHYSICIANS: Include Dr. Duran, Dr. Quinn Ortiz, Dr. Glenis Delgado and Dr. Karl Carl. 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 HISTORY OF PRESENT ILLNESS: The patient is a 77-year-old woman who was admitted to [facility] on 08/08/2018 when she presented with a left facial droop. Since her admission, she has been started on dexamethasone and her symptoms have improved. She has ahistory of non-small cell lung cancer. She was diagnosed with a right upper lung nodule back in March 2017 with mediastinal lymph nodes. She had a biopsy, which demonstrated poorly differentiated carcinoma with immunohistochemistry being suggestive of non-small cell lung cancer. The patient received radiation therapy and chemotherapy for presumed stage IIIB lung cancer. The chemotherapy was managed by her medical oncologist, Dr. Ortiz. The patient received radiation therapy to the affected lung from 06/19/2017-07/31/2017. She was prescribed 6000 cGy with 6 MV photons in 200 cGy daily fractions at that time. She then had a head CT on 06/12/2018, which confirmed a brain metastasis. She also had a skull metastasis. She went on to receive stereotactic radiation therapy to the brain metastasis consisting of 1800 cGy in 1 fraction with 6 MV photons and she also was prescribed 2000 cGy to the left skull metastasis in 1 fraction with 6 MV photons. She was seen for followup visit on 08/05/2018 and at that time, she had a head MRI scan performed on 07/29/2018 and that was done at [facility] and the right frontal lobe lesion had decreased in size when compared to her pretreatment head MRI, so on her pretreatment head MRI, the lesion measured 1.3 cm. x 4.43 x 1.37 cm and that was on 06/20/2018 and the MRI on 07/29/2018, the lesion measured 0.97 cm. x 1.17 cm. x 0.93 cm. When she was admitted to [facility], they performed a head MRI on 08/08/2018 and they felt that that lesion may have increased in size since the 07/29/2018 lesion measuring 1.5 cm in greatest dimension with vasogenic edema present. She was started on dexamethasone and her symptoms appeared to have improved with the dexamethasone she is taking 4 mg every 6 [place] [address] CONSULTATION Name: MELVIN HUDSON Room: [address] IN [facility].#: [id number] Admission: 08/08/18 Attend Phys: Fredrick Rodriguez MD Discharge: 08/10/18 Date of : 42 Report #: [id number] PAST MEDICAL HISTORY AND PAST SURGICAL HISTORY: History of lung cancer in 2017. Multiple thyroid nodules. Hypertension and reflux. She has had previous operations consisting of a bunionectomy. Dr. Porter performed facial nerve surgery. She also had a total abdominal hysterectomy. OBSTETRICS AND GYNECOLOGY: Menarche was at age 15. She is 3, para 3. She was menopausal at age 41 when she had her hysterectomy. MEDICATIONS: Right now include dexamethasone 4 mg every 6 hours. She takes 81 mg of aspirin per day. She is also on levetiracetam, clopidogrel, losartan, atorvastatin, pantoprazole, famotidine. ALLERGIES: ARE TO AMLODIPINE, SHE HAD AN ADVERSE REACTION TO GADOLINIUM WHERE SHE HAD SOME COUGHING, WHICH MAY OR MAY NOT HAVE BEEN DUE TO THE GADOLINIUM, BUT SHE HAS HAD GADOLINIUM SINCE THEN, SO SHE IS NOT ALLERGIC TO THE GADOLINIUM. SOCIAL HISTORY: The patient smoked about 3/4 of pack of cigarettes per day for about 50 years. She quit smoking around 2016. REVIEW OF SYSTEMS: CONSTITUTIONAL: She is not diaphoretic. HEAD, EYES, EARS, NOSE AND THROAT: She had no facial swelling. Eyes: She had no photophobia. RESPIRATORY: No wheezing. CARDIOVASCULAR: Negative for palpitations. GASTROINTESTINAL: Negative for vomiting. GENITOURINARY: Negative for hematuria. MUSCULOSKELETAL: Negative for gait problems. SKIN: Negative for rash. NEUROLOGIC: She had no speech difficulty. HEMATOLOGIC: She does not bruise or bleed easily. PSYCHIATRIC: She is negative for confusion. PHYSICAL EXAMINATION: VITAL SIGNS: Temperature 98.5 degrees Fahrenheit, pulse 75, respirations 19, blood pressure 132/87. LYMPH NODES: She had no palpable cervical or supraclavicular lymphadenopathy. EYES: Pupils were equal, round and reactive to light and accommodation. Extraocular movements were intact. HEAD, EYES, EARS, NOSE AND THROAT: Mouth had no visible lesions. HEART: Had a regular rate and rhythm without murmur. LUNGS: were clear to auscultation. ABDOMEN: Not tender. Spleen was not palpable. Liver was at the costal margin. NEUROLOGIC: She had 4/5 strength throughout. She has mild left facial [facility] [address] [place] [address] CONSULTATION Name: MELVIN HUDSON Room: [address] IN ..#: [id number] Admission: 08/08/18 Attend Phys: Fredrick Rodriguez MD Discharge: 08/10/18 Date of : 42 Report #: [id number] drooping. She is able to totally close her left eyelid. The patient indicated that that was improved since her admission while she has been on dexamethasone. LABORATORY DATA: From 08/09/2018, sodium 140, potassium 4.0, BUN 14, creatinine 0.9. White blood count 4.6, hemoglobin 12.4, platelets 208,000. ASSESSMENT AND PLAN: The patient has findings consistent either with post-treatment changes, which are causing her symptoms versus progression of her tumor. Less likely that she would have cerebral necrosis in that area. Her symptoms appear to be improving with dexamethasone, so she continues to be stable on dexamethasone. I will go ahead and refer her to her neurosurgeon, Dr. Porter or his colleagues to assess these MRIs to help differentiate between these possible etiologies for her symptoms and then, I asked the patient to follow up with me after she sees her neurosurgeon Thank you very much for this consult. <ELECTRONICALLY SIGNED> By: Norberto Calderón MD 08/19/18 0301 1832 [id number] Calderón MD /nt
== END 2018-08-10 10:45 | disposition home or self-care (01) | DRG 55 ==
LOC: M.ERS 11:42 → M.2W 13:25 → M.TBA-ER 13:25 → M.2W 15:43
PROVIDERS: Emergency Medicine Emergency Medical Services; ADMIT Internal Medicine
DX: C79.31 Secondary malignant neoplasm of brain (principal); C34.90 Malignant neoplasm of unspecified part of unspecified bronchus or lung; E44.1 Mild protein-calorie malnutrition; I73.9 Peripheral vascular disease, unspecified; I10 Essential (primary) hypertension; K21.9 Gastro-esophageal reflux disease without esophagitis; Z90.710 Acquired absence of both cervix and uterus; Z87.891 Personal history of nicotine dependence; Z88.8 Allergy status to other drugs, medicaments and biological substances; Z79.899 Other long term (current) drug therapy; Z68.30 Body mass index [BMI] 30.0-30.9, adult

== ENCOUNTER 2018-09-26 01:12 | Emergency (ER) | payer MEDICARE, BC ==
[~2018-09-26] VITALS: Ht 160 cm
[~2018-09-26 01:12] MED LIST changes: +DEXAMETHASONE 44 M1 PO; +PREDNISONE 5 MG5 MG PO; +VENTOLIN HFA 1818 GM INH
[2018-09-26 01:36] LABS: HEMATOCRIT 40.2 % (37.0-47.0); HEMOGLOBIN 13.3 gm/dL (12.0-15.0); MCH 28.8 pg (26.0-34.0); MCHC 33.1 g/dL (28.0-37.0); MPV 6.4 fl. (7.2-11.1); NUCLEATED RBCS 0 /100WBC; PLATELET COUNT* 238 thou/uL (150-400); RBC 4.62 mil/uL (4.20-5.00); RDW-CV 17.2 % (10.5-14.5); WBC 8.1 thou/uL (4.0-11.0)
[2018-09-26 01:50] LABS: CALCIUM 9.5 mg/dL (8.5-10.1); POTASSIUM 3.6 mmol/L (3.5-5.1)
[2018-09-26 01:51] LABS: PROTIME 10.2 Seconds (9.20-11.50)
[2018-09-26 02:00] LABS: ABSOLUTE EOSINOPHILS 0.1 thou/uL (0.0-0.7); ABSOLUTE LYMPHOCYTES 1.5 thou/uL (0.8-5.3); ABSOLUTE MONOCYTES 1.4 thou/uL (0.0-1.2); ABSOLUTE NEUTROPHILS 5.1 thou/uL (1.6-8.1); ANISOCYTOSIS 1+; PLATELET ESTIMATE ADEQUATE
[2018-09-26 02:01] LABS: ALBUMIN 3.2 g/dL (3.4-5.0); TOTAL BILIRUBIN 0.4 mg/dL (<0.1-1.0); TOTAL PROTEIN 6.3 g/dL (6.4-8.2); TROPONIN-I LEVEL 0.22 ng/mL (<0.06)
[2018-09-26 03:53] LABS: URINE BILIRUBIN NEGATIVE (Negative); URINE BLOOD NEGATIVE (Negative); URINE CLARITY CLEAR; URINE COLOR YELLOW; URINE GLUCOSE-RANDOM NEGATIVE (Negative); URINE KETONES NEGATIVE (Negative); URINE LEUKOCYTES-REFLEX NEGATIVE (Negative); URINE NITRITE-REFLEX NEGATIVE (Negative); URINE PROTEIN NEGATIVE (Negative); URINE UROBILINOGEN 0.2 E.U./dl (0.2-1.0)
[2018-09-26 06:20] VITALS: BP 95/65
--- NOTE | 2018-09-26 13:46 | EKG ---
[place] [address] ELECTROCARDIOGRAM REPORT Name: MELVIN HUDSON Room: [facility]#: [id number] Admission: 09/26/18 Attend Phys: Discharge: 09/26/18 Date of : 42 Report #: [id number] THIS REPORT FOR: //name// [facility] ED Test Date: 2018-09-26 Test Time: 01:24:39 Pat Name: MELVIN HUDSON Department: Room: Gender: F Mains And Service Supervisor: CATE : 1940 Requested By: Ketty Dang Order Number: [id number] MD: Vinnie Borges Measurements Intervals [place] Rate: 100 P: 58 [place]: 144 QRS: 15 QRSD: 90 T: 34 QT: 348 QTc: 449 Interpretive Statements Sinus tachycardia Ventricular premature complex Probable left atrial enlargement Borderline low voltage, extremity leads Abnormal inferior Q waves Borderline ST elevation, inferior leads Compared to ECG 08/08/2018 11:58:52 Inferior Q waves now present Q waves now present ST (T wave) deviation now present Myocardial infarct finding no longer present Electronically Signed On 09-26-2018 13:46:21 REGISTERED PHARMACY TECHNICIAN by Vinnie Borges [email or web address] <ELECTRONICALLY SIGNED> By: Vinnie Borges MD, FACC 09/26/18 1346 0124 0124 Vinnie Borges MD, FACC /EPI
--- NOTE | 2018-09-26 13:46 | EKG ---
[place] [address] ELECTROCARDIOGRAM REPORT Name: MELVIN HUDSON Room: [facility]#: [id number] Admission: 09/26/18 Attend Phys: Discharge: 09/26/18 Date of : 42 Report #: [id number] THIS REPORT FOR: //name// [facility] ED Test Date: 2018-09-26 Test Time: 03:42:25 Pat Name: MELVIN HUDSON Department: Room: Gender: F Hand Miter Operator: CATE : 1940 Requested By: Ketty Dang Order Number: [id number] MD: Vinnie Borges Measurements Intervals [place] Rate: 98 P: 58 [place]: 150 QRS: -18 QRSD: 90 T: 64 QT: 363 QTc: 464 Interpretive Statements Sinus tachycardia Atrial premature complex Probable left atrial enlargement Borderline left axis deviation Low voltage, extremity and precordial leads Consider inferior infarct Minimal ST elevation, lateral leads Compared to ECG 08/08/2018 11:58:52 Atrial premature complex(es) now present Low QRS voltage now present ST (T wave) deviation now present Ventricular premature complex(es) no longer present Myocardial infarct finding still present Electronically Signed On 09-26-2018 13:46:33 [facility] by Vinnie Borges [email or web address] <ELECTRONICALLY SIGNED> By: Vinnie Borges MD, [facility] 09/26/18 1346 1 034 Vinnie Borges MD, FAC /EPI
== END 2018-09-26 06:25 | disposition short-term general hospital (02) ==
LOC: M.ERS 01:12
PROVIDERS: Emergency Medicine
DX: I21.4 Non-ST elevation (NSTEMI) myocardial infarction (principal); G40.109 Localization-related (focal) (partial) symptomatic epilepsy and epileptic syndromes with simple partial seizures, not intractable, without status epilepticus; R06.00 Dyspnea, unspecified; R79.89 Other specified abnormal findings of blood chemistry; I10 Essential (primary) hypertension; I73.9 Peripheral vascular disease, unspecified; K21.9 Gastro-esophageal reflux disease without esophagitis; Z85.828 Personal history of other malignant neoplasm of skin; Z90.710 Acquired absence of both cervix and uterus

== ENCOUNTER 2018-11-26 19:01 | Emergency (ER) | payer MEDICARE, BC ==
[~2018-11-26] VITALS: Ht 157.5 cm; Wt 76.2 kg
[2018-11-26] MEDS ORDERED: [UNRECOGNIZED DRUG - REMARK] (19:21)
[2018-11-26] MEDS ORDERED: VIMPAT (19:21)
[2018-11-26 19:33] LABS: ABSOLUTE BASOPHILS 0.1 thou/uL (0.0-0.2); ABSOLUTE EOSINOPHILS 0.1 thou/uL (0.0-0.7); ABSOLUTE LYMPHOCYTES 1.2 thou/uL (0.8-5.3); ABSOLUTE NEUTROPHILS 3.8 thou/uL (1.6-8.1); BASOPHILS 0.8 %; HEMATOCRIT 38.7 % (37.0-47.0); HEMOGLOBIN 12.9 gm/dL (12.0-15.0); LYMPHOCYTES 19.7 %; MCH 29.6 pg (26.0-34.0); MCHC 33.4 g/dL (28.0-37.0); MCV 88.7 fL (80.0-100.0); MONOCYTES 15.8 %; MPV 6.4 fl. (7.2-11.1); NUCLEATED RBCS 0 /100WBC; PLATELET COUNT* 190 thou/uL (150-400); POLYS 61.7 %; RBC 4.36 mil/uL (4.20-5.00); WBC 6.2 thou/uL (4.0-11.0)
[2018-11-26 19:50] LABS: URINE BILIRUBIN NEGATIVE (Negative); URINE BLOOD TRACE (Negative); URINE CLARITY CLEAR; URINE COLOR YELLOW; URINE GLUCOSE-RANDOM NEGATIVE (Negative); URINE KETONES TRACE (Negative); URINE LEUKOCYTES-REFLEX 1+ (Negative); URINE NITRITE-REFLEX NEGATIVE (Negative); URINE PROTEIN NEGATIVE (Negative); URINE UROBILINOGEN 0.2 E.U./dl (0.2-1.0)
[2018-11-26 19:51] LABS: ALBUMIN 3.3 g/dL (3.4-5.0); CALCIUM 9.3 mg/dL (8.5-10.1); CREATININE 1.3 mg/dL (0.6-1.3); POTASSIUM 3.5 mmol/L (3.5-5.1); TOTAL BILIRUBIN 0.3 mg/dL (<0.1-1.0); TOTAL PROTEIN 6.4 g/dL (6.4-8.2)
[2018-11-26 19:58] LABS: BACTERIA-REFLEX 1-9 Few /HPF (None Seen); CASTS None Seen /LPF (None Seen); CRYSTALS None Seen /LPF (None Seen); SQUAMOUS 0-3 Few /LPF (0-3); URINE RBC 0-2 Rare /HPF (0-2); URINE WBC-REFLEX 0-5 Rare /HPF (0-5)
[2018-11-26] MEDS ORDERED: d3 (20:03)
[2018-11-26] MEDS ORDERED: LOPRESSOR25 (20:04)
[2018-11-26] MEDS ORDERED: IRBESARTAN-HCT1 EACH (20:07)
[2018-11-26] MEDS ORDERED: KEPPRA1000 MG (20:09)
[2018-11-26] MEDS ORDERED: DEPAKOTE 250MG250 M1 (20:10)
[2018-11-26 22:15] VITALS: BP 140/75
--- NOTE | 2018-11-27 16:03 | EKG ---
[place] [address] ELECTROCARDIOGRAM REPORT Name: MELVIN HUDSON Room: [facility]#: [id number] Admission: 11/26/18 Attend Phys: Discharge: 11/26/18 Date of : 42 Report #: [id number] THIS REPORT FOR: //name// [facility] ED Test Date: 2018-11-26 Test Time: 19:23:17 Pat Name: MELVIN HUDSON Department: Room: Gender: F Poultry Culler: KELLIE : 1940 Requested By: Ketty Dang Order Number: [id number] MD: Bob Pandey Measurements Intervals [place] Rate: 59 P: 48 [place]: 181 QRS: -3 QRSD: 94 T: 115 QT: 416 QTc: 413 Interpretive Statements Sinus rhythm Low voltage, precordial leads Abnrm T, consider ischemia, anterolateral lds Compared to ECG 09/26/2018 03:42:25 Possible ischemia now present Sinus tachycardia no longer present Atrial premature complex(es) no longer present Myocardial infarct finding no longer present ST (T wave) deviation no longer present Electronically Signed On 11-27-2018 16:03:08 [employer] by Bob Pandey [email or web address] <ELECTRONICALLY SIGNED> By: Bob Pandey MD, [facility] 11/27/18 1603 22 22 Bob Pandey MD, FAC /EPI
== END 2018-11-26 22:09 | disposition home or self-care (01) ==
LOC: M.ERS 19:01
PROVIDERS: Emergency Medicine
DX: T42.6X1A Poisoning by other antiepileptic and sedative-hypnotic drugs, accidental (unintentional), initial encounter (principal); I10 Essential (primary) hypertension; I73.9 Peripheral vascular disease, unspecified; K21.9 Gastro-esophageal reflux disease without esophagitis; Z85.828 Personal history of other malignant neoplasm of skin; Z90.710 Acquired absence of both cervix and uterus; Z85.118 Personal history of other malignant neoplasm of bronchus and lung; Y92.89 Other specified places as the place of occurrence of the external cause

== ENCOUNTER → 2018-11-29 | Outpatient (CLI) | payer MEDICARE, BC ==
[~2018-11-29] MED LIST changes: +DEPAKOTE 250MG250 M1; +IRBESARTAN-HCT1 EACH; +KEPPRA1000 MG; +LOPRESSOR25; +VIMPAT; +[UNRECOGNIZED DRUG - REMARK]; +d3
== END ==
LOC: M.LAB 09:08
DX: R89.2 Abnormal level of other drugs, medicaments and biological substances in specimens from other organs, systems and tissues (principal)

== ENCOUNTER 2019-01-11 17:57 | Inpatient (IN) | payer MEDICARE, BC ==
[~2019-01-11] VITALS: Ht 162.6 cm; Wt 81.2 kg
[~2019-01-11 17:57] MED LIST changes: -IRBESARTAN-HCT1 EACH; -KEPPRA1000 MG; +KEPPRA1000 MG PO; -LOPRESSOR25; +LOPRESSOR25 PO; +cholecalciferol PO; -d3
[2019-01-11 18:02] VITALS: BP 168/90
[2019-01-11 18:27] LABS: ABSOLUTE EOSINOPHILS 0.2 thou/uL (0.0-0.7); ABSOLUTE LYMPHOCYTES 1.3 thou/uL (0.8-5.3); ABSOLUTE MONOCYTES 0.8 thou/uL (0.0-1.2); ABSOLUTE NEUTROPHILS 3.8 thou/uL (1.6-8.1); BASOPHILS 0.8 %; EOSINOPHILS 2.5 %; HEMATOCRIT 39.6 % (37.0-47.0); HEMOGLOBIN 13.3 gm/dL (12.0-15.0); LYMPHOCYTES 21.1 %; MCHC 33.5 g/dL (28.0-37.0); MCV 86.4 fL (80.0-100.0); MONOCYTES 13.4 %; MPV 6.7 fl. (7.2-11.1); NUCLEATED RBCS 0 /100WBC; PLATELET COUNT* 225 thou/uL (150-400); POLYS 62.2 %; RBC 4.59 mil/uL (4.20-5.00); RDW-CV 15.2 % (10.5-14.5); WBC 6.2 thou/uL (4.0-11.0)
[2019-01-11 18:53] LABS: ALBUMIN 2.3 g/dL (3.4-5.0); ALKALINE PHOSPHATASE 68 U/L (46-116); ANION GAP 12 mmol/L (7-16); BUN 11 mg/dL (7-18); CALCIUM 6.5 mg/dL (8.5-10.1); CHLORIDE 112 mmol/L (98-107); CO2 20 mmol/L (21-32); CREATININE 0.7 mg/dL (0.6-1.3); GLUCOSE 77 mg/dL (70-99); SGOT 10 U/L (15-37); SGPT 12 U/L (30-65); SODIUM 144 mmol/L (136-145); TOTAL BILIRUBIN 0.3 mg/dL (<0.1-1.0); TOTAL PROTEIN 4.5 g/dL (6.4-8.2); TROPONIN-I LEVEL <0.06 ng/mL (<0.06)
[2019-01-11 18:57] LABS: POTASSIUM 2.6 mmol/L (3.5-5.1)
[2019-01-11] MEDS ORDERED: INCRUSE ELLI62.5 MCG INH (19:16)
[2019-01-11] MEDS ORDERED: MUCINEX600 MG PO (19:17)
[2019-01-11] MEDS ORDERED: TYLENOL325 MG PO (19:17)
[2019-01-11 20:15] VITALS: BP 145/64
[2019-01-11 20:19] VITALS: BP 152/75
[2019-01-12] VITALS (7 sets, daily range): BP systolic 123–158; BP diastolic 60–83
--- NOTE | 2019-01-12 05:53 | NUR ---
RECEIVED REPORT FROMED RN. PT TRANSFERRED TO 213. PT A&OX4. AIRPLANE PILOT IN PLACE. VSS. PHYSICAL ASSESSMENT COMPLETED AND CHARTED. FALL FORM SIGNED. ORIENTED TO ROOM & CALL LIGHT. PT TRACING SB ON TELE. PT UPSTANDBY TO RESTROOM. PT HAD A ONETIME EPISODE OF SEIZURE LIKE ACTIVITY- TWITCHING OF FACIAL MUSCLE APPROX 1 MIN. PT DENIES ANY PAIN OR DISCOMFORT. NIH CHARTED. CALL LIGHT WITHIN REACH.
--- NOTE | 2019-01-12 10:09 | NUR ---
CALLED [facility] AND REVIWED MEDICATION LIST. NO CHANGES MADE LIST IS ACCURATE
--- NOTE | 2019-01-12 12:08 | EKG ---
[place] [address] ELECTROCARDIOGRAM REPORT Name: MELVIN HUDSON Room: [address] ADM IN M.R.#: [id number] Admission: 01/11/19 Attend Phys: Fredrick Rodriguez MD Discharge: Date of : 42 Report #: [id number] THIS REPORT FOR: //name// [facility] ED Test Date: 2019-01-11 Test Time: 18:32:37 Pat Name: MELVIN HUDSON Department: Room: [facility] Gender: F Lead Painter: LINN : 1940 Requested By: Jason Whelan Order Number: [id number] MD: Hugo Christine Measurements Intervals [place] Rate: 54 P: 37 [place]: 186 QRS: -1 QRSD: 100 T: 55 QT: 437 QTc: 415 Interpretive Statements Sinus rhythm Compared to ECG 11/26/2018 19:23:17 Possible ischemia no longer present Electronically Signed On 01-12-2019 12:07:59 CDT by Hugo Christine [email or web address] <ELECTRONICALLY SIGNED> By: Hugo Christine MD, [facility] 01/12/19 1207 31 31 Hugo Christine MD, FAC /EPI
--- NOTE | 2019-01-12 16:23 | NUR ---
PT RESTING IN BED THROUGHOUT SHIFT. PT ASSISTED TO BR WITH STEADY GAIT. NO SEIZURE ACTIVITY NOTED THIS SHIFT. PT TOLERATING PO WELL. AT BS AND UPDATED ON PLAN OF CARE
[2019-01-13 00:30] VITALS: BP 116/59
[2019-01-13 04:00] VITALS: BP 134/56
[2019-01-13 04:23] LABS: HEMATOCRIT 37.6 % (37.0-47.0); HEMOGLOBIN 12.4 gm/dL (12.0-15.0); MCH 28.7 pg (26.0-34.0); MCV 86.9 fL (80.0-100.0); MPV 6.9 fl. (7.2-11.1); RBC 4.32 mil/uL (4.20-5.00); RDW-CV 15.5 % (10.5-14.5); WBC 6.1 thou/uL (4.0-11.0)
[2019-01-13 04:40] LABS: MAGNESIUM 1.8 mg/dL (1.8-2.4); POTASSIUM 4.1 mmol/L (3.5-5.1); TOTAL BILIRUBIN 0.2 mg/dL (<0.1-1.0); TOTAL PROTEIN 5.8 g/dL (6.4-8.2)
[2019-01-13 04:50] LABS: CALCIUM 8.9 mg/dL (8.5-10.1)
[2019-01-13 08:00] VITALS: BP 124/63
[2019-01-13 12:11] VITALS: BP 125/64
[2019-01-13] MEDS ORDERED: TRILEPTAL300 MG PO (13:06)
[2019-01-13] MEDS ORDERED: VIMPAT200 MG PO (13:23)
[2019-01-13] MEDS ORDERED: KEPPRA1000 MG PO (13:38)
[2019-01-13 14:44] VITALS: BP 125/64
--- NOTE | 2019-01-13 14:56 | NUR ---
ASSUMED PT CARE REPORT RECEIVED FROM NURSE. PT IS AOX4 SR ON CLINICAL STATISTICS MANAGER.O2 SAT 94% RA. PT ON SEIZURE PRECAUTION. SEIZURE MEDICATIONS HAVE BEEN GIVEN ORDERED. IV LINE PATENT. PT HAS GOOD APPETITE. PT TO BE DISCHARGE TO HOME. WILL CONTINUE TO MONITOR
--- NOTE | 2019-01-15 14:23 | EEG ---
[address] [address] EEG STUDY REPORT Name: MELVIN HUDSON Room: [address] IN M.R.#: [id number] Admission: 01/11/19 Attend Phys: Fredrick Rodriguez MD Discharge: 01/13/19 Date of : 42 Report #: [id number] THIS REPORT FOR: //name// CC: Emil Rodriguez DATE OF SERVICE: 01/12/2019 This patient is being evaluated for the possibility of seizure. EEG was done by placing the electrodes by standard 10-20 system of electrode placement. Both referential and sequential montages were used for recording. Background activity in this patient's EEG is about 10 Hz and 40 microvolt. The patient became drowsy and that is associated with bilateral slowing and vertex sharp waves. Photic stimulation was unremarkable. Throughout the record, no active epileptiform activity was noticed. IMPRESSION: In spite of the patient's history, the electroencephalogram does not show any active epileptiform activity. It might be mentioned that electroencephalogram can be normal in a patient with a seizure disorder. Thank you very much for this referral. <ELECTRONICALLY SIGNED> By: Dharmesh Jimenez MD 01/15/19 1423 1333 1621Plainey Jimenez MD /nt
--- NOTE | 2019-01-15 14:23 | CON ---
[address] [address] CONSULTATION Name: TRISTANMELVINANA GARCIA Room: [address] IN M.R.#: [id number] Admission: 01/11/19 Attend Phys: Fredrick Rodriguez MD Discharge: 01/13/19 Date of : 42 Report #: [id number] THIS REPORT FOR: //name// CC: Emil Rodriguez DATE OF SERVICE: 01/12/2019 HISTORY OF PRESENT ILLNESS: This is a 78-year-old female patient who was evaluated by me for seizure. This patient has a complicated history. It looks like she was diagnosed with lung cancer in 2016 and she received treatment at and I do not have those records. This patient was admitted here in July and I saw her at that time. At that time, she was diagnosed with a tumor, which was increasing in size. Then, in September, she had a seizure. She was admitted to [facility] and they did surgery on her. I do not have that records with me. She was admitted here because she has trouble with twitching on the left side of the face and she was brought here. Apparently, she had mainly twitching on the left side of the face, there was no tonic-clonic activity, even the twitching was minor, it was just a staring look which worried the and he brought the patient here. REVIEW OF SYSTEMS: Indicate that she was admitted in September to [facility]. She underwent resection of a lesion in the brain. She was on 4 anticonvulsants at that time. It was Dilantin, Vimpat, Keppra, and another one, the name of which the patient's does not remember. She still has these seizures, although they are pretty small seizures. Review of systems indicate that this patient has been admitted with stroke-like symptoms in the past, but that was found to be enlarging tumor than stroke. She has a longstanding history of lung cancer with metastasis to the brain. Her physicians are at [facility]. She does have a history of hypertension. She had a prior history of abdominal hysterectomy. A 14-point review of system was otherwise unremarkable. PHYSICAL EXAMINATION: Indicate that this patient is alert, responsive, able to follow simple commands. Her memory and fund of knowledge is diminished, but probably baseline. Cranial nerve examination 2-12 mostly looks noncontributory. She moves all four extremities and has a position sense in both sides. There is no meningeal sign in this patient. There is no carotid bruit. She is moderately built individual who does not have any dysmorphic features of the eyes, ears and face. Blood pressure is 156/83, pulse is 65, temperature is 97.1. LABORATORY DATA: White count is 6.2. Her potassium when she came in was only 2.6 and her calcium was only 6.5. The last time her magnesium was checked, [place] 1.6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 I do not have her prior records. She is on 2 anticonvulsants as I understand from the family. It is not clear what dose the patient is on. The patient is on Keppra 2000 mg p.o. b.i.d. lacosamide dose is not clear. The records indicate she is on 50 mg b.i.d., but the says she is on 200 mg b.i.d. I asked him to clarify that. RECOMMENDATIONS: If the patient is not a full on a full dose of Vimpat, which is 200 mg b.i.d., we should gradually increase it to that dose. If she is already on that, then we may try some medications, which are supposedly more effective for focal seizure. We can try Trileptal and if that is unsuccessful, we can try Tegretol. I will get an EEG done. I discussed with the family that these focal seizures are very difficult to control and we may not be able to control them fully. She does need a repeat MRI. All the workup is at and at one time, there was some doubt whether she is allergic to gadolinium. I suggested that she follow up with the and I might let them do the MRI there. If they were to get it done here, we can do here. I discussed all of it with the patient and the family and their options. Time spent 50 minutes, more than half that time spent counseling and coordinating care. <ELECTRONICALLY SIGNED> By: Dharmesh Jimenez MD 01/15/19 1423 1018 0035Dharmesh Jimenez MD /nt
== END 2019-01-13 15:27 | disposition home or self-care (01) | DRG 100 ==
LOC: M.ERS 17:57 → M.2W 18:44 → M.TBA-ER 18:44 → M.2W 20:34
PROVIDERS: Family Medicine; Internal Medicine; ADMIT Internal Medicine
DX: G40.909 Epilepsy, unspecified, not intractable, without status epilepticus (principal); E43 Unspecified severe protein-calorie malnutrition; C34.90 Malignant neoplasm of unspecified part of unspecified bronchus or lung; C79.31 Secondary malignant neoplasm of brain; J96.10 Chronic respiratory failure, unspecified whether with hypoxia or hypercapnia; I10 Essential (primary) hypertension; K21.9 Gastro-esophageal reflux disease without esophagitis; I73.9 Peripheral vascular disease, unspecified; M48.00 Spinal stenosis, site unspecified; Z79.899 Other long term (current) drug therapy; Z68.30 Body mass index [BMI] 30.0-30.9, adult

== ENCOUNTER → 2019-01-14 | Outpatient (CLI) | payer MEDICARE, BC ==
[~2019-01-14] MED LIST changes: +INCRUSE ELLI62.5 MCG INH; +MUCINEX600 MG PO; +TRILEPTAL300 MG PO; +TYLENOL325 MG PO; +VIMPAT200 MG PO
[2019-01-14 12:01] LABS: ALBUMIN 3.5 g/dL (3.4-5.0); CALCIUM 9.2 mg/dL (8.5-10.1); CREATININE 0.9 mg/dL (0.6-1.3); POTASSIUM 3.8 mmol/L (3.5-5.1); TOTAL BILIRUBIN 0.3 mg/dL (<0.1-1.0); TOTAL PROTEIN 6.8 g/dL (6.4-8.2)
== END ==
LOC: M.LAB 10:29 → M.MRI 11:30 → M.LAB 01-21 10:30 → M.MRI 01-21 11:30
PROVIDERS: Radiology Radiation Oncology
DX: C79.31 Secondary malignant neoplasm of brain (principal); C34.90 Malignant neoplasm of unspecified part of unspecified bronchus or lung; M47.812 Spondylosis without myelopathy or radiculopathy, cervical region; Z92.3 Personal history of irradiation

== ENCOUNTER → 2019-02-14 | Outpatient (CLI) | payer MEDICARE, BC | LOC: M.LAB 10:34 | DX: R56.9 Unspecified convulsions (principal); C34.2 Malignant neoplasm of middle lobe, bronchus or lung; C79.31 Secondary malignant neoplasm of brain ==

== ENCOUNTER → 2019-03-05 | Outpatient (CLI) | payer MEDICARE, BC ==
[2019-03-05 10:54] LABS: ABSOLUTE MONOCYTES 0.9 thou/uL (0.0-1.2); ABSOLUTE NEUTROPHILS 3.8 thou/uL (1.6-8.1); BASOPHILS 0.6 %; EOSINOPHILS 0.6 %; HEMATOCRIT 37.8 % (37.0-47.0); HEMOGLOBIN 12.7 gm/dL (12.0-15.0); MCH 28.5 pg (26.0-34.0); MCHC 33.5 g/dL (28.0-37.0); MCV 85.1 fL (80.0-100.0); MONOCYTES 16.5 %; NUCLEATED RBCS 0 /100WBC; PLATELET COUNT* 212 thou/uL (150-400); POLYS 65.3 %; RBC 4.44 mil/uL (4.20-5.00); RDW-CV 16.1 % (10.5-14.5); WBC 5.7 thou/uL (4.0-11.0)
[2019-03-05 11:30] LABS: ALBUMIN 3.6 g/dL (3.4-5.0); CALCIUM 9.2 mg/dL (8.5-10.1); CREATININE 0.8 mg/dL (0.6-1.3); POTASSIUM 3.8 mmol/L (3.5-5.1); TOTAL BILIRUBIN 0.2 mg/dL (<0.1-1.0); TOTAL PROTEIN 6.3 g/dL (6.4-8.2)
== END ==
LOC: M.LAB 10:33
PROVIDERS: Psychiatry & Neurology Neuromuscular Medicine
DX: R56.9 Unspecified convulsions (principal)

== ENCOUNTER 2019-11-02 17:42 | Emergency (ER) | payer MEDICARE, BC ==
[~2019-11-02] VITALS: Ht 157.5 cm; Wt 74.8 kg
[2019-11-02] MEDS ORDERED: DECADRON4 MG PO (18:02)
[2019-11-02] MEDS ORDERED: SYMBICORT160 MCG/4. INH (18:02)
[2019-11-02 20:21] LABS: HEMATOCRIT 38.5 % (37.0-47.0); HEMOGLOBIN 13.2 gm/dL (12.0-15.0); MCH 31.1 pg (26.0-34.0); MCHC 34.3 g/dL (28.0-37.0); MCV 90.5 fL (80.0-100.0); MPV 6.4 fl. (7.2-11.1); NUCLEATED RBCS 0 /100WBC; PLATELET COUNT* 124 thou/uL (150-400); RBC 4.25 mil/uL (4.20-5.00); RDW-CV 18.4 % (10.5-14.5); WBC 9.5 thou/uL (4.0-11.0)
[2019-11-02] MEDS ORDERED: VITAMIN D34000 UNIT PO (20:21)
[2019-11-02] MEDS ORDERED: ZONEGRAN100 MG PO (20:21)
[2019-11-02] MEDS ORDERED: TYLENOL EXTRA500 MG PO (20:22)
[2019-11-02] MEDS ORDERED: VITAMIN B-121000 MC2 SUBLING (20:22)
[2019-11-02] MEDS ORDERED: CLONAZEPAM 0.50.5 M1 PO (20:22)
[2019-11-02] MEDS ORDERED: VISINE15 ML EA. EYE (20:23)
[2019-11-02] MEDS ORDERED: SALINE MIST44 ML NASAL (20:23)
[2019-11-02 20:31] LABS: CALCIUM 8.5 mg/dL (8.5-10.1); CREATININE 0.9 mg/dL (0.6-1.3); POTASSIUM 3.7 mmol/L (3.5-5.1)
[2019-11-02 21:05] LABS: ABSOLUTE MONOCYTES 0.9 thou/uL (0.0-1.2); ABSOLUTE NEUTROPHILS 7.6 thou/uL (1.6-8.1); ATYPICAL LYMPHS 5 %; PLATELET ESTIMATE DECREASED
[2019-11-02 22:41] LABS: URINE BILIRUBIN NEGATIVE (Negative); URINE BLOOD NEGATIVE (Negative); URINE CLARITY CLEAR; URINE COLOR YELLOW; URINE GLUCOSE-RANDOM NEGATIVE (Negative); URINE KETONES NEGATIVE (Negative); URINE LEUKOCYTES-REFLEX NEGATIVE (Negative); URINE NITRITE-REFLEX NEGATIVE (Negative); URINE PROTEIN NEGATIVE (Negative); URINE SPECIFIC GRAVITY <= 1.005 (1.005-1.030); URINE UROBILINOGEN 0.2 E.U./dl (0.2-1.0)
[2019-11-02] MEDS ORDERED: CIPROFLOXIN HC2.5 M1 OPHTHALMIC (23:21)
[2019-11-02] MEDS ORDERED: LORCET 5-325 M1 EACH PO (23:23)
[2019-11-03 00:10] VITALS: BP 152/78
== END 2019-11-03 00:11 | disposition home or self-care (01) ==
LOC: M.ERS 17:42
PROVIDERS: Emergency Medicine
DX: S05.02XA Injury of conjunctiva and corneal abrasion without foreign body, left eye, initial encounter (principal); I10 Essential (primary) hypertension; K21.9 Gastro-esophageal reflux disease without esophagitis; Z85.828 Personal history of other malignant neoplasm of skin; Z90.710 Acquired absence of both cervix and uterus; Z98.890 Other specified postprocedural states; W06.XXXA Fall from bed, initial encounter; Y92.89 Other specified places as the place of occurrence of the external cause; Y93.89 Activity, other specified; Y99.8 Other external cause status